=== PATIENT | male | born 1960 | race Caucasian/White ===

== ENCOUNTER 2018-05-09 11:44 | Day surgery (SDC) | END 2018-05-09 16:55 | disposition home or self-care (01) ==

== ENCOUNTER 2018-09-05 06:32 | Day surgery (SDC) | payer BC ==
[2018-09-04 15:57] VITALS: BMI 33.6
[~2018-09-05] VITALS: Ht 175.3 cm; Wt 90.6 kg
[2018-09-05] VITALS (14 sets, daily range): BP systolic 116–142; BP diastolic 67–94; PULSE 84–104; RESP 10–24; Ht 175.3 cm; Wt 90.6 kg
[~2018-09-05 06:32] MED LIST: LISINOPRIL
[2018-09-05] MEDS ORDERED: LACTATED RINGER'S 1,000 ML IV* SCH (07:00)
[2018-09-05] MEDS ORDERED: CEFAZOLIN 2 GM/50 ML (PMX) 50 ML IVPB ONE (07:00)
[2018-09-05] MEDS ORDERED: CEFAZOLIN 1 GM INJ ONE (07:00)
[2018-09-05] MEDS ORDERED: LISI1TAB8 PO (07:23)
[2018-09-05] MEDS ORDERED: PRAV20TA63 PO (07:24)
[2018-09-05] MEDS ORDERED: AMIT10TA6 PO (07:25)
--- NOTE | 2018-09-05 07:26 | HPN ---
Date/Time of Note Date/Time of Note DATE: 09/05/18 TIME: 07:26 Interval H&P Admission Note Pt. seen H&P reviewed: No system changes ALEXANDRO BERNABE Sep 05, 2018 07:26
[2018-09-05] MEDS ORDERED: POLYMYXIN/BACITRACIN 1L IRRIG ONE (08:23)
--- NOTE | 2018-09-05 08:24 | PREAC ---
Date/Time of Note Date/Time of Note DATE: 09/05/18 TIME: 08:21 Anesthesia Eval and Record Evaluation Time Pre-Procedure Interview DATE: 09/05/18 TIME: 08:21 Age 57 Sex male NPO: 8 hrs Preoperative diagnosis right elbow lateral epicondylitis Planned procedure right elbow epicondyle debridement of devitalized tissue, tendinosis. excision of osteophyte right lateral elbow. primary repair of right elbow common extensor tendon Past Medical History Past Medical History: Includes Cardio: HTN, Dyslipidemia Surgery & Anesthesia Issues No known issue Meds Anticoagulation: No Beta Brad within 24 hr: No Reason Beta Brad not given: Pt. not on B-Brad Reported Medications Amitriptyline Hcl* (Amitriptyline Hcl*) 10 Mg Tablet, 10 MG PO QHS, #30 TAB 09/05/18 Pravastatin Sodium* (Pravastatin Sodium*) 20 Mg Tablet, 20 MG PO HS, TAB 09/05/18 Lisinopril/Hydrochlorothiazide (Lisinopril-Hctz 20-25 mg Tab) 1 Each Tablet, 1 EACH PO DAILY, TAB 09/05/18 Discontinued Reported Medications [Lisinopril] No Conflict Check 05/09/18 Current Medications Lactated Ringer's 1,000 ml @ 25 mls/hr Q24H IV* ; Start 09/05/18 at 07:00; Stop 09/06/18 at 22:59 Meds reviewed: Yes Allergies Coded Allergies: No Known Allergy (Unverified , 09/05/18) Allergies Reviewed: Yes Labs/Studies Labs Reviewed: Reviewed by anesthesiologist test: N/A Studies: ECG Pre-procedure Exam Last vitals Vital Signs Date Temp Pulse Resp B/P (MAP) Pulse Ox O2 O2 Flow FiO2 Time Delivery Rate 09/05/18 97.9 89 18 134/94 97 Room Air 07:17 (107) Airway: Adequate mouth opening, Adequate thyromental dist Mallampati: Mallampati II Teeth: Normal Lung: Normal Heart: Normal ASA Physical Status ASA physical status: 2 Emergency: None Planned Anesthetic General/MAC: LMA Planned Pain Management Parenteral pain med, Local by surgeon Pre-operative Attestations Prior to commencing anesthesia and surgery, the patient was re-evaluated, there was verification of: *The patient's identity *The results of appropriate recent lab work and preoperative vital signs *The above evaluation not changing prior to induction *Anesthetic plan, risk benefits, alternative and complications discussed with patient/family; questions answered; patient/family understands, accepts and wishes to proceed. LOS HERZOG MD Sep 05, 2018 08:24
[2018-09-05] MEDS ORDERED: BUPIVACAINE 0.5% (SDV) 30 ML INJ ONE (08:26)
[2018-09-05] MEDS ORDERED: OXYCODONE/ACETAMINOPHEN (5/325) TAB PO PRN (08:30)
[2018-09-05] MEDS ORDERED: FENTAnyl 50 MCG/ML VIAL IV PRN ×2 (08:30)
[2018-09-05] MEDS ORDERED: HYDROmorphONE 1 MG/5 ML IV SYRINGE IV PRN ×3 (08:30)
[2018-09-05] MEDS ORDERED: DIPHENHYDRAMINE 50 MG INJ IV PRN (08:30)
[2018-09-05] MEDS ORDERED: MEPERIDINE 25 MG INJ IV PRN (08:30)
[2018-09-05] MEDS ORDERED: PROCHLORPERAZINE 10 MG INJ IV PRN (08:30)
[2018-09-05] MEDS ORDERED: ONDANSETRON 4 MG INJ IV PRN (08:30)
[2018-09-05] MEDS ORDERED: LIDOCAINE 2% (SDV) 5 ML INJ ONE (08:33)
[2018-09-05] MEDS ORDERED: PROPOFOL 20 ML ONE (08:33)
[2018-09-05] MEDS ORDERED: MIDAZOLAM 1 MG/ML 2 ML INJ ONE (08:34)
[2018-09-05] MEDS ORDERED: FENTAnyl 50 MCG/ML VIAL ONE (08:34)
[2018-09-05] MEDS ORDERED: DEXAMETHASONE 4 MG/ML 5 ML INJ ONE (08:50)
[2018-09-05] MEDS ORDERED: ONDANSETRON 4 MG INJ ONE (08:50)
[2018-09-05] MEDS ORDERED: FAMOTIDINE 20 MG INJ ONE (08:51)
[2018-09-05] MEDS ORDERED: EPHEDrine 50 MG INJ ONE (08:58)
--- NOTE | 2018-09-05 09:09 | OPPN ---
Date/Time of Note Date/Time of Note DATE: 09/05/18 TIME: 09:08 Operative Report Preoperative Diagnosis Right elbow lateral epicondylitis, osteophyte formation Postoperative Diagnosis Right elbow lateral epicondylitis, osteophyte formation Operation/Procedure Performed Right elbow lateral epicondyle debridement with excision of osteophyte Primary repair of right elbow common extensor tendon Surgeon see signature line [employer] none Anesthesia: general Estimated blood loss: 0 - 10 ml's Transfusion Required none Specimen none Grafts/Implants none Complications none ALEXANDRO BERNABE Sep 05, 2018 09:09
[2018-09-05] MEDS: FENTAnyl 50 MCG/ML VIAL IV PRN ×3 (09:36→09:59)
--- NOTE | 2018-09-05 09:51 | PAC ---
Date/Time of Note Date/Time of Note DATE: 09/05/18 TIME: 09:50 Post-Anesthesia Notes Post-Anesthesia Note Last documented vital signs Vital Signs Date Temp Pulse Resp B/P (MAP) Pulse Ox O2 O2 Flow FiO2 Time Delivery Rate 09/05/18 94 16 119/73 95 Room Air 09:25 (88) 09/05/18 09:15 09/05/18 98.0 09:15 Activity: WNL Respiratory function: WNL Cardiovascular function: WNL Mental status: Baseline Pain reasonably controlled: Yes Hydration appropriate: Yes Nausea/Vomiting absent: Yes LOS HERZOG MD Sep 05, 2018 09:51
--- NOTE | 2018-09-05 11:42 | OPR ---
DATE OF OPERATION: 09/05/2018 SURGEON: Bernardo Garcia MD ANESTHESIA: General. PREOPERATIVE DIAGNOSIS: Right elbow lateral epicondylitis with osteophyte formation. POSTOPERATIVE DIAGNOSIS: Right elbow lateral epicondylitis with osteophyte formation. PROCEDURE: 1. Right elbow lateral epicondyle debridement for tennis elbow. 2. Right elbow excision of osteophyte at the lateral epicondyle. 3. Primary repair of right elbow common extensor tendon. OPERATIVE FINDINGS: Right elbow tendinosis with osteophyte formation and tearing of the common extensor tendon. INDICATION FOR PROCEDURE: A 57-year-old male with a longstanding right tennis elbow who failed conservative measures and elected to proceed with surgical intervention, understanding the risks and benefits. DESCRIPTION OF PROCEDURE: The patient was seen for the OR and all further questions were answered. Again, he gave informed consent understanding risks and benefits. He was taken to operative suite and placed in the supine position. He was placed under general anesthesia, and tourniquet placed in the right upper extremity. Ancef 2 grams IV given, and right upper extremity was prepped with ChloraPrep stick and draped in usual sterile fashion. Esmarch bandage was used to exsanguinate the extremity and tourniquet inflated to 250 mmHg. A curvilinear incision over the lateral epicondyle was utilized with sharp dissection carried down through skin and subcutaneous tissue. Tenotomy scissors divided the soft tissue overlying the lateral elbow. The common extensor tendon was visualized and the fascia was incised longitudinally. There was found to be devitalized tendon and tendinosis, which was debrided using a rongeur. I then visualized the lateral epicondyle bone which had a large osteophyte, which was excised and smoothed down using a rongeur. After excising all devitalized and tendinotic tissue as well as the osteophyte, the wound was copiously irrigated. Attention was turned to repair the common extensor tendon. A 3-0 Monocryl suture was used to repair the common extensor tendon primarily. The wound was then copiously irrigated and skin closed with 4-0 nylon. Xeroform placed over wound followed by sterile gauze, Webril and a bias dressing. Tourniquet deflated after 18 minutes and patient was awakened from anesthesia. He was taken to postoperative suite in stable condition, tolerated procedure well without complication. SPECIMENS: None. ESTIMATED BLOOD LOSS: 5 mL. COUNTS: Sponge, instrument, needle counts correct. TOURNIQUET TIME: 18 CONDITION ON DISCHARGE: Stable. The patient was given a non-refillable 5 day prescription for pain medication with surgery today. Dictated By: BERNARDO NIÑO/CATRACHITO Conf#: [id number] DID#: [id number] MTDD
== END 2018-09-05 10:50 | disposition home or self-care (01) ==
LOC: SDS 06:32
PROVIDERS: ATTEND Orthopaedic Surgery Hand Surgery
DX: M77.11 Lateral epicondylitis, right elbow (principal); M25.721 Osteophyte, right elbow; I10 Essential (primary) hypertension; E78.5 Hyperlipidemia, unspecified
CPT/HCPCS: 24357; J1100; J2250; J2405; J3010; Z7512; Z7610; J0690